=== PATIENT | male | born 1960 | race Caucasian/White ===

== ENCOUNTER 2023-11-23 09:59 | Emergency (ER) | payer BC ==
[~2023-11-23] VITALS: Ht 175.3 cm; Wt 100.2 kg
[2023-11-23 10:42] LABS: BASOPHILS % (AUTO) 0.3 % (0.0-2.0); EOSINOPHILS # (AUTO) 0.1 K/uL (0.0-0.7); EOSINOPHILS % (AUTO) 0.4 % (0.0-6.0); HEMATOCRIT 38 % (39-51); HEMOGLOBIN 13.2 g/dL (13.5-17.5); LYMPHOCYTES % (AUTO) 6.5 % (20.0-44.0); MEAN CORPUSCULAR HEMOGLOBIN 31 PG (26.0-33.0); MEAN CORPUSCULAR HGB CONC 35 g/dl (31.0-36.0); MEAN CORPUSCULAR VOLUME 88 fL (80-96); MONOCYTES % (AUTO) 6.7 % (2.0-12.0); NEUTROPHILS # (AUTO) 12.9 K/uL (1.8-8.9); NEUTROPHILS % (AUTO) 86.1 % (43.0-81.0); PLATELET COUNT (AUTO) 215 K/uL (150-450); RED BLOOD CELL COUNT(AUTO) 4.31 MIL/uL (4.5-6.0); RED CELL DISTRIBUTION WIDTH 12.5 % (11.5-15.0)
[2023-11-23 10:50] LABS: CALCIUM, SERUM 8.7 mg/dL (8.5-10.1); CARBON DIOXIDE 25 mmol/L (21-32); CHLORIDE 100 mmol/L (98-107); CREATININE 1.4 mg/dL (0.6-1.3); GLUCOSE 120 mg/dL (74-106); POTASSIUM 3.9 mmol/L (3.5-5.1); SODIUM SERUM 133 mmol/L (136-145); UREA NITROGEN, BLOOD 16 mg/dL (7-18)
[2023-11-23 10:57] LABS: ALANINE AMINOTRANSFERASE 18 U/L (12-78); ALBUMIN 3.4 g/dL (3.4-5.0); ALKALINE PHOSPHATASE 107 U/L (46-116); ASPARTATE AMINOTRANSFERASE 13 U/L (15-37); BILIRUBIN,DIRECT 0.2 mg/dL (0.0-0.2); BILIRUBIN,TOTAL 0.7 mg/dL (0.2-1.0); LIPASE 28 U/L (16-77); TOTAL PROTEIN, SERUM 7.3 g/dL (6.4-8.2)
[2023-11-23] MEDS: MORPHINE SULFATE INJ 2 MG/ML DISP.SYRIN IV ONE (11:30)
[2023-11-23] MEDS ORDERED: MORPHINE SULFATE INJ 2 MG/ML DISP.SYRIN ONE (12:01)
[2023-11-23] MEDS ORDERED: CIPR-262 PO (12:20)
[2023-11-23] MEDS: CIPROFLOXACIN HCL 500 MG TABLET PO ONE (12:38)
[2023-11-23] MEDS ORDERED: CIPROFLOXACIN HCL 500 MG TABLET ONE (12:38)
[2023-11-23 12:44] VITALS: BP 154/68; TEMP 98.2; O2SAT 97
== END 2023-11-23 12:45 | disposition home or self-care (01) ==
LOC: ER 10:16
DX: R14.0 Abdominal distension (gaseous) (principal); G43.909 Migraine, unspecified, not intractable, without status migrainosus; R06.02 Shortness of breath
CPT/HCPCS: 36415; 71045-TC; 80048-TC; 80076-TC; 83690-TC; 84484-TC; 85025-TC; 87086-TC; J2270

== ENCOUNTER 2024-04-11 20:36 | Emergency (ER) | payer BC, OTHER ==
[~2024-04-11] VITALS: Ht 175.3 cm; Wt 85.7 kg
[~2024-04-11 20:36] MED LIST: CIPR-262 PO
[2024-04-11 22:35] LABS: BASOPHILS % (AUTO) 0.2 % (0.0-2.0); EOSINOPHILS # (AUTO) 0.3 K/uL (0.0-0.7); EOSINOPHILS % (AUTO) 2.3 % (0.0-6.0); HEMATOCRIT 27 % (39-51); LYMPHOCYTES # (AUTO) 0.9 K/uL (0.8-4.8); LYMPHOCYTES % (AUTO) 7.3 % (20.0-44.0); MEAN CORPUSCULAR HEMOGLOBIN 29 PG (26.0-33.0); MEAN CORPUSCULAR HGB CONC 33 g/dl (31.0-36.0); MEAN CORPUSCULAR VOLUME 87 fL (80-96); MONOCYTES # (AUTO) 0.1 K/uL (0.1-1.30); MONOCYTES % (AUTO) 0.8 % (2.0-12.0); NEUTROPHILS # (AUTO) 10.5 K/uL (1.8-8.9); NEUTROPHILS % (AUTO) 89.4 % (43.0-81.0); PLATELET COUNT (AUTO) 183 K/uL (150-450); RED BLOOD CELL COUNT(AUTO) 3.13 MIL/uL (4.5-6.0); WHITE BLOOD COUNT (AUTO) 11.8 K/uL (4.3-11.0)
[2024-04-11 23:15] LABS: CALCIUM, SERUM 6.7 mg/dL (8.5-10.1); CREATININE 1.7 mg/dL (0.6-1.3); POTASSIUM 4.6 mmol/L (3.5-5.1)
[2024-04-11 23:27] LABS: ALBUMIN 2.3 g/dL (3.4-5.0); BILIRUBIN,TOTAL 0.4 mg/dL (0.2-1.0); MAGNESIUM 2.1 mg/dL (1.8-2.4); TOTAL PROTEIN, SERUM 6.1 g/dL (6.4-8.2)
[2024-04-11 23:53] LABS: APPEARANCE,URINE CLEAR (CLEAR); BILIRUBIN,URINE NEGATIVE (NEGATIVE); BLOOD, URINE TRACE-INTA Ery/uL (NEGATIVE); COLOR,URINE YELLOW (YELLOW); KETONES,URINE NEGATIVE (NEGATIVE); LEUKOCYTE ESTERASE ,URINE NEGATIVE (NEGATIVE); NITRITE, URINE NEGATIVE (NEGATIVE); PROTEIN,URINE NEGATIVE (NEGATIVE); UGLUCOSE NEGATIVE (NEGATIVE); UROBILINOGEN,URINE 0.2 EU/dL (0.2)
[2024-04-12 00:23] LABS: ADD URINE CULTURE NO; BACTERIA,URINE None seen /HPF (None Seen); SQUAMOUS EPITHELIAL CELL,UR None Seen /HPF (None Seen)
[2024-04-12] MEDS ORDERED: ACETAMINOPHEN 325 MG TABLET ONE (02:24)
[2024-04-12] MEDS ORDERED: ONDANSETRON 4 MG TAB.RAPDIS ONE (02:25)
[2024-04-12] MEDS: ACETAMINOPHEN 325 MG TABLET PO ONE (02:26)
[2024-04-12] MEDS: ONDANSETRON HCL/PF - ER 4 MG/2 ML VIAL IV ONE ×2 (02:26→05:30)
[2024-04-12] MEDS: LACTULOSE 10 G/15 ML UDC (PYXIS) PO STA (04:58)
[2024-04-12] MEDS ORDERED: LACTULOSE 10 G/15 ML UDC (PYXIS) ONE (05:01)
[2024-04-12] MEDS: MAGNESIUM CITRATE 296 ML BOTTLE PO ONE (05:07)
[2024-04-12] MEDS ORDERED: ONDANSETRON HCL/PF 4 MG/2 ML VIAL ONE (05:27)
[2024-04-12] MEDS ORDERED: MORPHINE SULFATE INJ 2 MG/ML DISP.SYRIN ONE (05:28)
[2024-04-12] MEDS: MORPHINE SULFATE INJ 2 MG/ML DISP.SYRIN IV ONE (05:30)
[2024-04-12 08:23] VITALS: BP 130/71; TEMP 97.8; O2SAT 98
== END 2024-04-12 08:24 | disposition home or self-care (01) ==
LOC: ER 21:55
DX: G62.9 Polyneuropathy, unspecified (principal); H93.12 Tinnitus, left ear; Z85.528 Personal history of other malignant neoplasm of kidney; Z87.440 Personal history of urinary (tract) infections; G43.909 Migraine, unspecified, not intractable, without status migrainosus; Z79.899 Other long term (current) drug therapy
CPT/HCPCS: 99285; 71250; 71045; 93005; 74176; 85025; 83735; 81001; 36415; 80053; 84484; 83880; 96374; 96375; 96376; J2405 ×3; Q0162; J2270

== ENCOUNTER 2024-08-29 18:34 | Inpatient (IN) | payer OTHER ==
[~2024-08-29] VITALS: Ht 175.3 cm; Wt 96.6 kg
[2024-08-29] MEDS ORDERED: ONDANSETRON HCL/PF 4 MG/2 ML VIAL ONE (18:48)
[2024-08-29] MEDS: ONDANSETRON HCL/PF 4 MG/2 ML VIAL IVP ONE (18:53)
[2024-08-29] MEDS: IV NS 0.9% 1,000 ML BAG IV ONE ×2 (18:53→22:44)
[2024-08-29] MEDS: MORPHINE SULFATE INJ 2 MG/ML DISP.SYRIN IV ONE (20:00)
[2024-08-29 20:45] LABS: APPEARANCE,URINE CLEAR (CLEAR); BILIRUBIN,URINE Negative (NEGATIVE); BLOOD, URINE Large Ery/uL (NEGATIVE); COLOR,URINE YELLOW (YELLOW); KETONES,URINE Negative (NEGATIVE); LEUKOCYTE ESTERASE ,URINE Negative (NEGATIVE); PH,URINE 5.5 (5.0-8.0); PROTEIN,URINE 100 mg/dl (NEGATIVE); UGLUCOSE Negative (NEGATIVE); UROBILINOGEN,URINE 0.2 EU/dL (0.2)
[2024-08-29 20:48] LABS: NITRITE, URINE NEGATIVE (NEGATIVE)
[2024-08-29] MEDS ORDERED: MORPHINE SULFATE INJ 4 MG/ML DISP.SYRIN ONE (20:49)
[2024-08-29 20:50] LABS: ADD URINE CULTURE NO; BACTERIA,URINE Few /HPF (None Seen); HYALINE CASTS, URINE Few /LPF (None Seen); SQUAMOUS EPITHELIAL CELL,UR Rare /HPF (None Seen)
[2024-08-29] MEDS ORDERED: MORPHINE SULFATE INJ 2 MG/ML DISP.SYRIN ONE (20:52)
[2024-08-29] MEDS ORDERED: ACETAMINOPHEN ES 500 MG TABLET ONE (21:05)
[2024-08-29] MEDS: ACETAMINOPHEN ES 500 MG TABLET PO ONE (21:08)
[2024-08-29 21:14] LABS: BASOPHILS # (AUTO) 0.1 K/uL (0.0-0.2); BASOPHILS % (AUTO) 0.3 % (0.0-2.0); EOSINOPHILS # (AUTO) 0.1 K/uL (0.0-0.7); EOSINOPHILS % (AUTO) 0.3 % (0.0-6.0); HEMATOCRIT 24 % (39-51); HEMOGLOBIN 7.5 g/dL (13.5-17.5); LYMPHOCYTES # (AUTO) 1.2 K/uL (0.8-4.8); LYMPHOCYTES % (AUTO) 4.4 % (20.0-44.0); MEAN CORPUSCULAR HEMOGLOBIN 30 PG (26.0-33.0); MEAN CORPUSCULAR HGB CONC 31 g/dl (31.0-36.0); MEAN CORPUSCULAR VOLUME 97 fL (80-96); MONOCYTES # (AUTO) 1.4 K/uL (0.1-1.30); MONOCYTES % (AUTO) 4.9 % (2.0-12.0); NEUTROPHILS # (AUTO) 25.4 K/uL (1.8-8.9); NEUTROPHILS % (AUTO) 90.1 % (43.0-81.0); PLATELET COUNT (AUTO) 167 K/uL (150-450); RED BLOOD CELL COUNT(AUTO) 2.47 MIL/uL (4.5-6.0); WHITE BLOOD COUNT (AUTO) 28.2 K/uL (4.3-11.0)
[2024-08-29 21:26] LABS: CALCIUM, SERUM 9.7 mg/dL (8.5-10.1); CARBON DIOXIDE 20 mmol/L (21-32); CHLORIDE 104 mmol/L (98-107); CREATININE 1.6 mg/dL (0.6-1.3); GLUCOSE 112 mg/dL (74-106); POTASSIUM 5.9 mmol/L (3.5-5.1); SODIUM SERUM 131 mmol/L (136-145); UREA NITROGEN, BLOOD 35 mg/dL (7-18)
[2024-08-29 21:30] LABS: INR 1.27 (0.91-1.10); PARTIAL THROMBOPLASTIN TIME 27.2 SEC (24.3-34.3)
[2024-08-29 21:31] LABS: ALANINE AMINOTRANSFERASE 56 U/L (12-78); ALBUMIN 1.9 g/dL (3.4-5.0); ASPARTATE AMINOTRANSFERASE 60 U/L (15-37); BILIRUBIN,DIRECT 0.5 mg/dL (0.0-0.2); BILIRUBIN,TOTAL 0.7 mg/dL (0.2-1.0); LIPASE 20 U/L (16-77); TOTAL PROTEIN, SERUM 6.1 g/dL (6.4-8.2)
[2024-08-29 21:33] LABS: LACTIC ACID 2.2 mmol/L (0.4-2.0)
[2024-08-29 21:48] LABS: ALKALINE PHOSPHATASE 1560 U/L (46-116)
[2024-08-29 21:55] LABS: ANISOCYTOSIS 1+; LYMPHOCYTES % (MANUAL) 8 % (16-48); MONOCYTES % (MANUAL) 1 % (0-11.0); NEUTROPHILS % (MANUAL) 91 (42-76); PLATELET ESTIMATE ADEQUATE
[2024-08-29] MEDS ORDERED: VANCOMYCIN 1 GM /D5W 250 ML PB IV ONE (22:29)
[2024-08-29] MEDS ORDERED: MAGNESIUM HYDROXIDE 30 ML UDC PO PRN (22:30)
[2024-08-29] MEDS ORDERED: Z GUARD REMEDY 4 OZ OINT TP PRN (22:30)
[2024-08-29] MEDS: VANCOMYCIN 1 GM in IV D5W 250 ML IV ONE (22:52)
[2024-08-29] MEDS ORDERED: SODIUM ZIRCONIUM CYCLOSILICATE 10 GM POWD.PACK ONE (22:59)
[2024-08-29] MEDS: SODIUM ZIRCONIUM CYCLOSILICATE 10 GM POWD.PACK PO ONE (23:03)
[2024-08-29 23:22] LABS: CREATININE 1.5 mg/dL (0.6-1.3); POTASSIUM 5.8 mmol/L (3.5-5.1)
[2024-08-29 23:31] LABS: LACTIC ACID 1.7 mmol/L (0.4-2.0)
[2024-08-30] MEDS ORDERED: PIPERACI/TAZO 3.375GM/D5W 50ML PB IV ONE (00:38)
[2024-08-30] MEDS: PIPERACILLIN /TAZOBACTAM 3.375 G in IV D5W 50 ML IV ONE (00:40)
[2024-08-30] MEDS ORDERED: PANTOPRAZOLE 40 MG TABLET.DR PO ONE (07:44)
[2024-08-30] MEDS ORDERED: ACETAMINOPHEN 325 MG TABLET ONE (07:44)
[2024-08-30] MEDS: ACETAMINOPHEN 325 MG TABLET PO PRN (07:47)
[2024-08-30] MEDS: PANTOPRAZOLE 40 MG TABLET.DR PO SCH (07:47)
[2024-08-30 07:54] LABS: BASOPHILS # (AUTO) 0.1 K/uL (0.0-0.2); BASOPHILS % (AUTO) 0.4 % (0.0-2.0); EOSINOPHILS # (AUTO) 0.1 K/uL (0.0-0.7); EOSINOPHILS % (AUTO) 0.5 % (0.0-6.0); HEMATOCRIT 22 % (39-51); LYMPHOCYTES # (AUTO) 1.1 K/uL (0.8-4.8); LYMPHOCYTES % (AUTO) 4.2 % (20.0-44.0); MEAN CORPUSCULAR HEMOGLOBIN 30 PG (26.0-33.0); MEAN CORPUSCULAR HGB CONC 32 g/dl (31.0-36.0); MEAN CORPUSCULAR VOLUME 96 fL (80-96); MONOCYTES # (AUTO) 1.3 K/uL (0.1-1.30); MONOCYTES % (AUTO) 4.9 % (2.0-12.0); NEUTROPHILS # (AUTO) 24.5 K/uL (1.8-8.9); PLATELET COUNT (AUTO) 148 K/uL (150-450); RED BLOOD CELL COUNT(AUTO) 2.31 MIL/uL (4.5-6.0); RED CELL DISTRIBUTION WIDTH 17.2 % (11.5-15.0); WHITE BLOOD COUNT (AUTO) 27.2 K/uL (4.3-11.0)
[2024-08-30] MEDS: VANCOMYCIN 750 MG in IV D5W 250 ML IV SCH (08:00)
[2024-08-30 08:04] LABS: CALCIUM, SERUM 8.6 mg/dL (8.5-10.1); CREATININE 1.2 mg/dL (0.6-1.3); MAGNESIUM 1.8 mg/dL (1.8-2.4); POTASSIUM 4.6 mmol/L (3.5-5.1)
[2024-08-30] MEDS ORDERED: APIX5TAB PO (09:00)
[2024-08-30] MEDS ORDERED: TRAM50TA2 PO (09:00)
[2024-08-30] MEDS ORDERED: PANT40TA49 PO (09:00)
[2024-08-30] MEDS: PIPERACILLIN /TAZOBACTAM 3.375 G in IV D5W 100 ML IV SCH (09:11)
[2024-08-30] MEDS: IV NS 0.9% 1,000 ML IV PRN (09:43)
[2024-08-30 10:51] LABS: EOSINOPHILS % (MANUAL) 1 % (0-4); LYMPHOCYTES % (MANUAL) 4 % (16-48); MONOCYTES % (MANUAL) 1 % (0-11.0); NEUTROPHILS % (MANUAL) 94 (42-76); PLATELET ESTIMATE DECREASED
[2024-08-30 10:53] LABS: ANISOCYTOSIS 1+
[2024-08-30 12:00] VITALS: BP 112/63; TEMP 97.9; O2SAT 100
[2024-08-30 16:00] VITALS: BP 116/65; TEMP 99.1; O2SAT 93
[2024-08-30] MEDS: IV LR 1000 ML 1,000 ML IV SCH (16:04)
[2024-08-30 20:00] VITALS: BP 119/63; TEMP 100.4; O2SAT 95
[2024-08-30] MEDS: VANCOMYCIN 1 GM in IV D5W 250 ML IV SCH (21:10)
[2024-08-31] VITALS: BP 113/66; TEMP 101.7; O2SAT 99
[2024-08-31] MEDS: TRAMADOL HCL 50 MG TABLET PO ONE (00:35)
[2024-08-31 07:09] LABS: BASOPHILS # (AUTO) 0.2 K/uL (0.0-0.2); BASOPHILS % (AUTO) 0.6 % (0.0-2.0); EOSINOPHILS # (AUTO) 0.1 K/uL (0.0-0.7); EOSINOPHILS % (AUTO) 0.6 % (0.0-6.0); HEMATOCRIT 24 % (39-51); HEMOGLOBIN 7.6 g/dL (13.5-17.5); LYMPHOCYTES # (AUTO) 1.1 K/uL (0.8-4.8); LYMPHOCYTES % (AUTO) 4.3 % (20.0-44.0); MEAN CORPUSCULAR HEMOGLOBIN 31 PG (26.0-33.0); MEAN CORPUSCULAR HGB CONC 32 g/dl (31.0-36.0); MEAN CORPUSCULAR VOLUME 97 fL (80-96); MONOCYTES # (AUTO) 1.3 K/uL (0.1-1.30); MONOCYTES % (AUTO) 4.8 % (2.0-12.0); NEUTROPHILS # (AUTO) 23.4 K/uL (1.8-8.9); NEUTROPHILS % (AUTO) 89.7 % (43.0-81.0); PLATELET COUNT (AUTO) 144 K/uL (150-450); WHITE BLOOD COUNT (AUTO) 26.1 K/uL (4.3-11.0)
[2024-08-31 07:43] LABS: CALCIUM, SERUM 10.3 mg/dL (8.5-10.1); CREATININE 1.6 mg/dL (0.6-1.3); POTASSIUM 5.1 mmol/L (3.5-5.1)
[2024-08-31 08:00] VITALS: BP 113/61; TEMP 97.9; O2SAT 99
[2024-08-31] MEDS: IV LR 1000 ML 1,000 ML IV PRN (09:07)
[2024-08-31 09:46] LABS: EOSINOPHILS % (MANUAL) 1 % (0-4); LYMPHOCYTES % (MANUAL) 5 % (16-48); MONOCYTES % (MANUAL) 4 % (0-11.0); NEUTROPHILS % (MANUAL) 90 (42-76)
[2024-08-31] MEDS: APIXABAN 5 MG TABLET PO SCH (10:17)
[2024-08-31 12:00] VITALS: BP 105/63; TEMP 98.1; O2SAT 97
[2024-08-31] MEDS: PAMIDRONATE 30 MG in IV NS 0.9% 500 ML IV ONE (12:45)
[2024-08-31 16:00] VITALS: BP 104/68; TEMP 98.1; O2SAT 100
[2024-08-31 18:09] LABS: D-DIMER 4.16 mg/L(FEU (0.17-0.50); INR 1.27 (0.91-1.10); PARTIAL THROMBOPLASTIN TIME 30.5 SEC (24.3-34.3); PROTHROMBIN TIME 13.3 SECS (9.2-11.1)
[2024-08-31 18:36] LABS: THYROID STIMULATING HORMONE 0.55 uIU/mL (0.358-3.74)
[2024-08-31 20:00] VITALS: BP 92/73; TEMP 100.6; O2SAT 97
[2024-08-31] MEDS: VANCOMYCIN 750 MG in IV D5W 250 ML IV SCH (20:20)
[2024-08-31] MEDS ORDERED: MEROPENEM 1 G VIAL IV ONE (23:17)
[2024-08-31] MEDS: MEROPENEM 1 G in IV NS 0.9% 100 ML IV ONE (23:23)
[2024-08-31] MEDS: TRAMADOL HCL 50 MG TABLET PO PRN (23:48)
[2024-08-31] MEDS: SENNOSIDES 8.6 MG TABLET PO PRN (23:48)
[2024-09-01] VITALS: BP 107/62; TEMP 99.3; O2SAT 95
[2024-09-01 04:00] VITALS: BP 96/65; TEMP 97.9; O2SAT 97
[2024-09-01 06:47] LABS: INR 1.27 (0.91-1.10); PARTIAL THROMBOPLASTIN TIME 32.2 SEC (24.3-34.3); PROTHROMBIN TIME 13.3 SECS (9.2-11.1)
[2024-09-01 06:48] LABS: RHEUMATOID FACTOR SCREEN NEGATIVE (NEGATIVE)
[2024-09-01 06:50] LABS: D-DIMER 5.84 mg/L(FEU (0.17-0.50)
[2024-09-01 06:54] LABS: ALBUMIN 1.8 g/dL (3.4-5.0); BILIRUBIN,TOTAL 0.7 mg/dL (0.2-1.0); CALCIUM, SERUM 10.6 mg/dL (8.5-10.1); CREATININE 1.9 mg/dL (0.6-1.3); MAGNESIUM 2.1 mg/dL (1.8-2.4); PHOSPHORUS 3.9 mg/dL (2.5-4.9); POTASSIUM 5.2 mmol/L (3.5-5.1); TOTAL PROTEIN, SERUM 5.9 g/dL (6.4-8.2)
[2024-09-01 06:58] LABS: CREATININE, URINE 91.7 MG/DL (30.0-125.0); URINE TOTAL PROTEIN 65.9 mg/dL (0-11.9)
[2024-09-01 07:01] LABS: BASOPHILS # (AUTO) 0.1 K/uL (0.0-0.2); BASOPHILS % (AUTO) 0.4 % (0.0-2.0); EOSINOPHILS # (AUTO) 0.2 K/uL (0.0-0.7); EOSINOPHILS % (AUTO) 0.6 % (0.0-6.0); HEMATOCRIT 23 % (39-51); HEMOGLOBIN 7.1 g/dL (13.5-17.5); LYMPHOCYTES # (AUTO) 1.4 K/uL (0.8-4.8); LYMPHOCYTES % (AUTO) 4.9 % (20.0-44.0); MEAN CORPUSCULAR HEMOGLOBIN 30 PG (26.0-33.0); MEAN CORPUSCULAR HGB CONC 30 g/dl (31.0-36.0); MEAN CORPUSCULAR VOLUME 99 fL (80-96); MONOCYTES # (AUTO) 1.3 K/uL (0.1-1.30); MONOCYTES % (AUTO) 4.5 % (2.0-12.0); NEUTROPHILS # (AUTO) 26.3 K/uL (1.8-8.9); NEUTROPHILS % (AUTO) 89.6 % (43.0-81.0); PLATELET COUNT (AUTO) 146 K/uL (150-450); RED BLOOD CELL COUNT(AUTO) 2.35 MIL/uL (4.5-6.0); RED CELL DISTRIBUTION WIDTH 17.8 % (11.5-15.0); WHITE BLOOD COUNT (AUTO) 29.3 K/uL (4.3-11.0)
[2024-09-01 08:00] VITALS: BP 106/62; TEMP 98.4; O2SAT 98
[2024-09-01] MEDS ORDERED: SODIUM ZIRCONIUM CYCLOSILICATE 10 GM POWD.PACK PO SCH (09:30)
[2024-09-01] MEDS: MEROPENEM 1 G in IV NS 0.9% 100 ML IV SCH (09:46)
[2024-09-01] MEDS: IV NS 0.9% 1,000 ML IV ONE (09:51)
[2024-09-01 12:00] VITALS: BP 111/63; TEMP 97.9; O2SAT 100
[2024-09-01] MEDS: VANCOMYCIN 1 GM in IV D5W 250 ML IV SCH (13:11)
[2024-09-01] MEDS ORDERED: SOD FERRIC GLUC 125 MG in IV NS 0.9% 100 ML IV SCH (14:00)
[2024-09-01] MEDS: PAMIDRONATE 30 MG in IV NS 0.9% 500 ML IV ONE (14:17)
[2024-09-01 15:21] LABS: CALCIUM, SERUM 10.1 mg/dL (8.5-10.1); CREATININE 1.6 mg/dL (0.6-1.3)
[2024-09-01 16:00] VITALS: BP 125/64; TEMP 98; O2SAT 98
[2024-09-01 16:09] LABS: HEMOGLOBIN 7.2 g/dL (13.5-17.5)
[2024-09-01] MEDS: FERROUS SULFATE (325 MG) 325 MG/TAB TABLET PO SCH (16:53)
[2024-09-01 20:00] VITALS: BP 131/61; TEMP 98.6; O2SAT 98
[2024-09-02] VITALS (7 sets, daily range): BP systolic 108–130; BP diastolic 59–90; TEMP 97.8–99.5; O2SAT 95–96
[2024-09-02] MEDS: MAG HYDROX/AL HYDROX/SIMETH 30 ML UDC PO PRN (03:47)
[2024-09-02 07:24] LABS: URIC ACID 7.7 mg/dL (2.6-7.2)
[2024-09-02 07:39] LABS: ALBUMIN 1.6 g/dL (3.4-5.0); BILIRUBIN,TOTAL 0.7 mg/dL (0.2-1.0); CALCIUM, SERUM 9.6 mg/dL (8.5-10.1); CREATININE 1.4 mg/dL (0.6-1.3); PHOSPHORUS 2.8 mg/dL (2.5-4.9); POTASSIUM 5.2 mmol/L (3.5-5.1); TOTAL PROTEIN, SERUM 5.5 g/dL (6.4-8.2)
[2024-09-02 08:34] LABS: BASOPHILS # (AUTO) 0.1 K/uL (0.0-0.2); BASOPHILS % (AUTO) 0.4 % (0.0-2.0); EOSINOPHILS # (AUTO) 0.2 K/uL (0.0-0.7); EOSINOPHILS % (AUTO) 0.7 % (0.0-6.0); HEMATOCRIT 22 % (39-51); LYMPHOCYTES # (AUTO) 1.2 K/uL (0.8-4.8); LYMPHOCYTES % (AUTO) 3.9 % (20.0-44.0); MEAN CORPUSCULAR HEMOGLOBIN 30 PG (26.0-33.0); MEAN CORPUSCULAR HGB CONC 31 g/dl (31.0-36.0); MEAN CORPUSCULAR VOLUME 97 fL (80-96); MONOCYTES # (AUTO) 1.2 K/uL (0.1-1.30); MONOCYTES % (AUTO) 3.9 % (2.0-12.0); NEUTROPHILS % (AUTO) 91.1 % (43.0-81.0); PLATELET COUNT (AUTO) 126 K/uL (150-450); RED BLOOD CELL COUNT(AUTO) 2.26 MIL/uL (4.5-6.0); RED CELL DISTRIBUTION WIDTH 17.3 % (11.5-15.0)
[2024-09-02 08:37] LABS: HEMOGLOBIN 6.8 g/dL (13.5-17.5); WHITE BLOOD COUNT (AUTO) 30.7 K/uL (4.3-11.0)
[2024-09-02] MEDS: SODIUM ZIRCONIUM CYCLOSILICATE 10 GM POWD.PACK PO SCH (09:31)
[2024-09-02 12:26] LABS: EOSINOPHILS % (MANUAL) 2 % (0-4); LYMPHOCYTES % (MANUAL) 6 % (16-48); MONOCYTES % (MANUAL) 1 % (0-11.0); NEUTROPHILS % (MANUAL) 91 (42-76); PLATELET ESTIMATE DECREASED
[2024-09-02 12:27] LABS: ANISOCYTOSIS 1+
[2024-09-02] MEDS: GUAIFENESIN/D-METHORPHAN HB 5 ML UDC PO PRN (14:59)
[2024-09-02] MEDS: PAMIDRONATE 30 MG in IV NS 0.9% 500 ML IV ONE (15:40)
[2024-09-02] MEDS: VANCOMYCIN 1 GM in IV D5W 250 ML IV SCH (17:56)
[2024-09-03] VITALS: BP 130/67; TEMP 100; O2SAT 96
[2024-09-03 06:52] LABS: BASOPHILS # (AUTO) 0.1 K/uL (0.0-0.2); BASOPHILS % (AUTO) 0.3 % (0.0-2.0); EOSINOPHILS # (AUTO) 0.3 K/uL (0.0-0.7); EOSINOPHILS % (AUTO) 0.9 % (0.0-6.0); HEMATOCRIT 25 % (39-51); HEMOGLOBIN 8.2 g/dL (13.5-17.5); LYMPHOCYTES # (AUTO) 1.2 K/uL (0.8-4.8); MEAN CORPUSCULAR HEMOGLOBIN 31 PG (26.0-33.0); MEAN CORPUSCULAR HGB CONC 32 g/dl (31.0-36.0); MEAN CORPUSCULAR VOLUME 95 fL (80-96); MONOCYTES # (AUTO) 1.3 K/uL (0.1-1.30); MONOCYTES % (AUTO) 4.6 % (2.0-12.0); NEUTROPHILS % (AUTO) 90.2 % (43.0-81.0); PLATELET COUNT (AUTO) 102 K/uL (150-450); RED BLOOD CELL COUNT(AUTO) 2.66 MIL/uL (4.5-6.0); RED CELL DISTRIBUTION WIDTH 17.2 % (11.5-15.0); WHITE BLOOD COUNT (AUTO) 28.9 K/uL (4.3-11.0)
[2024-09-03 06:57] LABS: CALCIUM, SERUM 9.7 mg/dL (8.5-10.1); CREATININE 1.3 mg/dL (0.6-1.3)
[2024-09-03 08:00] VITALS: BP 100/68; TEMP 98.8; O2SAT 96
[2024-09-03 08:10] LABS: IMMUNOGLOBULIN A, SERUM 282 mg/dL (61-437); IMMUNOGLOBULIN G, SERUM 1021 mg/dL (603-1613); IMMUNOGLOBULIN M, SERUM 116 mg/dL (20-172)
[2024-09-03 09:07] LABS: FREE KAPPA LT CHAINS SERUM 64.1 mg/L (3.3-19.4); FREE LAMBDA LT CHAIN SERUM 56.5 mg/L (5.7-26.3); KAPPA/LAMBDA RATIO SERUM 1.13 (0.26-1.65)
[2024-09-03] MEDS: ENSURE ENLIVE CHOC 237 ML CAN PO SCH (10:19)
[2024-09-03 16:00] VITALS: BP_SYST 115; BP_SYST 118; BP_DIAS 65; BP_DIAS 67; TEMP 97.9; O2SAT 95; O2SAT 96
[2024-09-03 19:07] LABS: APPEARANCE,URINE TURBID (CLEAR); BILIRUBIN,URINE NEGATIVE (NEGATIVE); BLOOD, URINE NEGATIVE Ery/uL (NEGATIVE); COLOR,URINE ORANGE (YELLOW); KETONES,URINE NEGATIVE (NEGATIVE); LEUKOCYTE ESTERASE ,URINE NEGATIVE (NEGATIVE); NITRITE, URINE NEGATIVE (NEGATIVE); PH,URINE 5.5 (5.0-8.0); PROTEIN,URINE TRACE mg/dl (NEGATIVE); UGLUCOSE NEGATIVE (NEGATIVE); UROBILINOGEN,URINE 0.2 EU/dL (0.2)
[2024-09-03 19:43] LABS: ADD URINE CULTURE NO; BACTERIA,URINE Rare /HPF (None Seen); RBC,URINE 0-2 /HPF (0-2); SQUAMOUS EPITHELIAL CELL,UR 0-2 /HPF (None Seen); WBC,URINE 0-2 /HPF (0-3)
[2024-09-03 19:44] LABS: URINE AMORPHOUS URATE Many /HPF (None Seen)
[2024-09-04 04:00] VITALS: BP 106/63; TEMP 99.5; O2SAT 96
[2024-09-04 07:07] LABS: CALCIUM, SERUM 9.7 mg/dL (8.5-10.1); CREATININE 1.4 mg/dL (0.6-1.3); MAGNESIUM 2.3 mg/dL (1.8-2.4); PHOSPHORUS 2.8 mg/dL (2.5-4.9); POTASSIUM 5.6 mmol/L (3.5-5.1)
[2024-09-04 07:10] LABS: *ANA ANTI-CENTROMERE B AB <0.2 AI (0.0-0.9); *ANA ANTI-DNA(DS) AB, QN <1 IU/mL (0-9); *ANA ANTI-JO-1 <0.2 AI (0.0-0.9); *ANA ANTICHROMATIN ANTIBODY <0.2 AI (0.0-0.9); *ANA RNP ANTIBODIES <0.2 AI (0.0-0.9); *ANA SJOGREN'S ANTI-SS-A <0.2 AI (0.0-0.9); *ANA SJOGREN'S ANTI-SS-B <0.2 AI (0.0-0.9); *ANAANTI-SCLERODERMA-70 AB <0.2 AI (0.0-0.9); *ANASMITH AB <0.2 AI (0.0-0.9)
[2024-09-04 08:43] LABS: BASOPHILS # (AUTO) 0.1 K/uL (0.0-0.2); BASOPHILS % (AUTO) 0.3 % (0.0-2.0); EOSINOPHILS # (AUTO) 0.2 K/uL (0.0-0.7); EOSINOPHILS % (AUTO) 0.7 % (0.0-6.0); HEMATOCRIT 27 % (39-51); HEMOGLOBIN 8.3 g/dL (13.5-17.5); LYMPHOCYTES # (AUTO) 1.3 K/uL (0.8-4.8); LYMPHOCYTES % (AUTO) 3.8 % (20.0-44.0); MEAN CORPUSCULAR HEMOGLOBIN 30 PG (26.0-33.0); MEAN CORPUSCULAR HGB CONC 31 g/dl (31.0-36.0); MEAN CORPUSCULAR VOLUME 98 fL (80-96); MONOCYTES # (AUTO) 1.4 K/uL (0.1-1.30); MONOCYTES % (AUTO) 4.3 % (2.0-12.0); NEUTROPHILS # (AUTO) 30.1 K/uL (1.8-8.9); NEUTROPHILS % (AUTO) 90.9 % (43.0-81.0); PLATELET COUNT (AUTO) 74 K/uL (150-450); RED BLOOD CELL COUNT(AUTO) 2.74 MIL/uL (4.5-6.0); RED CELL DISTRIBUTION WIDTH 18.1 % (11.5-15.0)
[2024-09-04 09:22] LABS: WHITE BLOOD COUNT (AUTO) 33.1 K/uL (4.3-11.0)
[2024-09-04] MEDS: NEOMY SULF/BACITRAC ZN/POLY 15 GM TUBE TP SCH (10:17)
[2024-09-04 12:05] VITALS: BP 100/68; TEMP 98.8; O2SAT 96
[2024-09-04 12:06] LABS: *SPE A/G RATIO 0.6 (0.7-1.7); *SPE ALBUMIN 1.9 g/dL (2.9-4.4); *SPE ALPHA-1-GLOBULIN 0.6 g/dL (0.0-0.4); *SPE ALPHA-2-GLOBULIN 0.9 g/dL (0.4-1.0); *SPE BETA GLOBULIN 0.6 g/dL (0.7-1.3); *SPE GLOBULIN, TOTAL 3.2 g/dL (2.2-3.9); *SPE M-SPIKE 0.2 g/dL (Not Observed); *SPE PROTEIN TOTAL 5.1 g/dL (6.0-8.5)
[2024-09-04 12:06] LABS: *SPE A/G RATIO 0.6 (0.7-1.7); *SPE ALBUMIN 1.8 g/dL (2.9-4.4); *SPE ALPHA-1-GLOBULIN 0.6 g/dL (0.0-0.4); *SPE ALPHA-2-GLOBULIN 0.9 g/dL (0.4-1.0); *SPE BETA GLOBULIN 0.7 g/dL (0.7-1.3); *SPE GLOBULIN, TOTAL 3.1 g/dL (2.2-3.9); *SPE M-SPIKE Not Observed g/dL (Not Observed); *SPE PROTEIN TOTAL 4.9 g/dL (6.0-8.5); *SPEGAMMA GLOBULIN 0.9 g/dL (0.4-1.8)
[2024-09-04 12:46] LABS: INR 1.39 (0.91-1.10); PROTHROMBIN TIME 14.1 SECS (9.2-11.1)
[2024-09-04 13:45] LABS: LYMPHOCYTES % (MANUAL) 6 % (16-48); MONOCYTES % (MANUAL) 2 % (0-11.0); NEUTROPHILS % (MANUAL) 92 (42-76); PLATELET ESTIMATE DECREASED
[2024-09-04 13:46] LABS: ANISOCYTOSIS 1+
[2024-09-04 13:53] LABS: D-DIMER 10.23 mg/L(FEU (0.17-0.50)
[2024-09-04] MEDS: ALLOPURINOL 100 MG TABLET PO SCH (14:52)
[2024-09-04] MEDS: SOD FERRIC GLUC 125 MG in IV NS 0.9% 100 ML IV SCH (16:18)
[2024-09-04 20:00] VITALS: BP 103/63; TEMP 100.6; O2SAT 96
[2024-09-05 01:06] LABS: FOLIC ACID 2.6 ng/mL (>3.0)
[2024-09-05 02:09] LABS: HEPATITIS B SURFACE AB (QUAL) Non Reactive (.)
[2024-09-05 04:00] VITALS: BP 108/65; TEMP 99.5; O2SAT 95
[2024-09-05 06:11] LABS: PTH, INTACT 4 pg/mL (15-65)
[2024-09-05 07:19] LABS: INR 1.39 (0.91-1.10); PARTIAL THROMBOPLASTIN TIME 39.4 SEC (24.3-34.3); PROTHROMBIN TIME 14.4 SECS (9.2-11.1)
[2024-09-05 07:48] LABS: ALBUMIN 1.5 g/dL (3.4-5.0); BILIRUBIN,TOTAL 1.1 mg/dL (0.2-1.0); CALCIUM, SERUM 8.9 mg/dL (8.5-10.1); CREATININE 1.5 mg/dL (0.6-1.3); MAGNESIUM 2.2 mg/dL (1.8-2.4); PHOSPHORUS 2.9 mg/dL (2.5-4.9); POTASSIUM 5.5 mmol/L (3.5-5.1); TOTAL PROTEIN, SERUM 5.2 g/dL (6.4-8.2)
[2024-09-05 07:51] LABS: URIC ACID 9.3 mg/dL (2.6-7.2)
[2024-09-05 08:00] VITALS: BP 105/59; TEMP 98.1; O2SAT 93
[2024-09-05 08:05] LABS: D-DIMER 10.65 mg/L(FEU (0.17-0.50)
[2024-09-05] MEDS ORDERED: NEPRO VAN 237 ML CAN PO PRN ×2 (08:30→14:00)
[2024-09-05 08:39] LABS: BASOPHILS # (AUTO) 0.1 K/uL (0.0-0.2); BASOPHILS % (AUTO) 0.4 % (0.0-2.0); EOSINOPHILS # (AUTO) 0.3 K/uL (0.0-0.7); EOSINOPHILS % (AUTO) 0.9 % (0.0-6.0); HEMATOCRIT 22 % (39-51); LYMPHOCYTES # (AUTO) 1.1 K/uL (0.8-4.8); LYMPHOCYTES % (AUTO) 3.4 % (20.0-44.0); MEAN CORPUSCULAR HEMOGLOBIN 30 PG (26.0-33.0); MEAN CORPUSCULAR HGB CONC 31 g/dl (31.0-36.0); MEAN CORPUSCULAR VOLUME 96 fL (80-96); MONOCYTES # (AUTO) 1.4 K/uL (0.1-1.30); MONOCYTES % (AUTO) 4.4 % (2.0-12.0); NEUTROPHILS # (AUTO) 28.1 K/uL (1.8-8.9); NEUTROPHILS % (AUTO) 90.9 % (43.0-81.0); RED BLOOD CELL COUNT(AUTO) 2.33 MIL/uL (4.5-6.0); RED CELL DISTRIBUTION WIDTH 17.7 % (11.5-15.0)
[2024-09-05 08:54] LABS: PLATELET COUNT (AUTO) 41 K/uL (150-450)
[2024-09-05] MEDS: SODIUM ZIRCONIUM CYCLOSILICATE 10 GM POWD.PACK PO SCH (10:13)
[2024-09-05] MEDS: IV NS 0.9% 1,000 ML IV SCH (10:14)
[2024-09-05 10:37] LABS: ANISOCYTOSIS 1+; LYMPHOCYTES % (MANUAL) 3 % (16-48); NEUTROPHILS % (MANUAL) 97 (42-76); PLATELET ESTIMATE DECREASED
[2024-09-05 12:00] VITALS: BP 105/59; TEMP 98.1; O2SAT 93
[2024-09-05] MEDS: SUCRALFATE 1 G/10 ML UDC GT SCH (12:23)
[2024-09-05] MEDS: HYDROCODONE/APAP 5/325MG TABLET PO PRN (13:45)
[2024-09-05 15:31] LABS: BASOPHILS # (AUTO) 0.1 K/uL (0.0-0.2); BASOPHILS % (AUTO) 0.2 % (0.0-2.0); EOSINOPHILS # (AUTO) 0.3 K/uL (0.0-0.7); EOSINOPHILS % (AUTO) 0.8 % (0.0-6.0); HEMATOCRIT 23 % (39-51); HEMOGLOBIN 7.5 g/dL (13.5-17.5); LYMPHOCYTES # (AUTO) 1.2 K/uL (0.8-4.8); LYMPHOCYTES % (AUTO) 3.5 % (20.0-44.0); MEAN CORPUSCULAR HEMOGLOBIN 31 PG (26.0-33.0); MEAN CORPUSCULAR HGB CONC 32 g/dl (31.0-36.0); MEAN CORPUSCULAR VOLUME 96 fL (80-96); MONOCYTES # (AUTO) 1.4 K/uL (0.1-1.30); MONOCYTES % (AUTO) 3.9 % (2.0-12.0); NEUTROPHILS # (AUTO) 32.3 K/uL (1.8-8.9); NEUTROPHILS % (AUTO) 91.6 % (43.0-81.0); RED BLOOD CELL COUNT(AUTO) 2.45 MIL/uL (4.5-6.0); RED CELL DISTRIBUTION WIDTH 17.4 % (11.5-15.0)
[2024-09-05 15:35] LABS: PLATELET COUNT (AUTO) 31 K/uL (150-450); WHITE BLOOD COUNT (AUTO) 35.3 K/uL (4.3-11.0)
[2024-09-05 15:43] LABS: AMYLASE 19 U/L (25-115); LIPASE 19 U/L (16-77)
[2024-09-05 15:59] LABS: LYMPHOCYTES % (MANUAL) 4 % (16-48); MONOCYTES % (MANUAL) 4 % (0-11.0); NEUTROPHILS % (MANUAL) 92 (42-76)
[2024-09-05 16:00] VITALS: BP 103/63; TEMP 98.8; O2SAT 94
[2024-09-05 16:00] LABS: ANISOCYTOSIS 1+; PLATELET ESTIMATE DECREASED; STOMATOCYTES 1+
[2024-09-05] MEDS: methylPREDNISolone SOD SUCC 125 MG/2ML VIAL IV SCH (16:37)
[2024-09-05] MEDS ORDERED: RASBURICASE IV ONE (18:00)
[2024-09-05] MEDS ORDERED: NS 0.9% IV ONE (18:00)
[2024-09-05 20:00] VITALS: BP 113/65; TEMP 97; O2SAT 95
[2024-09-05] MEDS: RASBURICASE IV ONE (20:37)
[2024-09-05] MEDS: NS 0.9% IV ONE (20:37)
[2024-09-05] MEDS: LEVOFLOXACIN (250MG) 250 MG TABLET PO SCH (21:40)
[2024-09-05] MEDS: DOXYCYCLINE HYCLATE (100 MG) 100 MG TABLET PO SCH (21:47)
[2024-09-06 04:00] VITALS: BP 112/67; TEMP 97.9; O2SAT 96
[2024-09-06 06:54] LABS: BASOPHILS # (AUTO) 0.1 K/uL (0.0-0.2); BASOPHILS % (AUTO) 0.3 % (0.0-2.0); EOSINOPHILS # (AUTO) 0.5 K/uL (0.0-0.7); HEMATOCRIT 26 % (39-51); HEMOGLOBIN 8.1 g/dL (13.5-17.5); LYMPHOCYTES # (AUTO) 1.3 K/uL (0.8-4.8); LYMPHOCYTES % (AUTO) 2.8 % (20.0-44.0); MEAN CORPUSCULAR HEMOGLOBIN 30 PG (26.0-33.0); MEAN CORPUSCULAR HGB CONC 31 g/dl (31.0-36.0); MEAN CORPUSCULAR VOLUME 96 fL (80-96); MONOCYTES # (AUTO) 0.6 K/uL (0.1-1.30); MONOCYTES % (AUTO) 1.4 % (2.0-12.0); NEUTROPHILS # (AUTO) 44.2 K/uL (1.8-8.9); NEUTROPHILS % (AUTO) 94.5 % (43.0-81.0); RED BLOOD CELL COUNT(AUTO) 2.69 MIL/uL (4.5-6.0); RED CELL DISTRIBUTION WIDTH 18.2 % (11.5-15.0)
[2024-09-06 07:23] LABS: URIC ACID 6.9 mg/dL (2.6-7.2)
[2024-09-06 07:34] LABS: PLATELET COUNT (AUTO) 20 K/uL (150-450); WHITE BLOOD COUNT (AUTO) 46.7 K/uL (4.3-11.0)
[2024-09-06 07:41] LABS: BILIRUBIN,TOTAL 0.8 mg/dL (0.2-1.0); CALCIUM, SERUM 8.5 mg/dL (8.5-10.1); CREATININE 1.4 mg/dL (0.6-1.3); MAGNESIUM 2.2 mg/dL (1.8-2.4); PHOSPHORUS 3.3 mg/dL (2.5-4.9); POTASSIUM 5.5 mmol/L (3.5-5.1); TOTAL PROTEIN, SERUM 5.2 g/dL (6.4-8.2)
[2024-09-06 08:23] LABS: ALBUMIN 1.4 g/dL (3.4-5.0)
[2024-09-06] MEDS: FOLIC ACID 1 MG TABLET PO SCH (09:42)
[2024-09-06 10:20] LABS: ANISOCYTOSIS 1+; EOSINOPHILS % (MANUAL) 1 % (0-4); LYMPHOCYTES % (MANUAL) 4 % (16-48); NEUTROPHILS % (MANUAL) 95 (42-76); PLATELET ESTIMATE DECREASED
[2024-09-06] MEDS: IV NS 0.9% 1,000 ML IV SCH (10:42)
[2024-09-06] MEDS: SODIUM ZIRCONIUM CYCLOSILICATE 10 GM POWD.PACK PO SCH (11:00)
[2024-09-06 12:00] VITALS: BP 120/70; TEMP 98; O2SAT 96
[2024-09-06] MEDS: ONDANSETRON HCL/PF 4 MG/2 ML VIAL IVP PRN (16:19)
[2024-09-06 16:58] LABS: CALCIUM, SERUM 8.6 mg/dL (8.5-10.1); CREATININE 1.5 mg/dL (0.6-1.3); POTASSIUM 5.4 mmol/L (3.5-5.1)
[2024-09-06 20:00] VITALS: BP 108/98; TEMP 97.2; O2SAT 97
[2024-09-06] MEDS: POLYETHYLENE GLYCOL 3350 17 GM POWD.PACK PO SCH (21:29)
[2024-09-07 04:00] VITALS: BP_SYST 119; BP_SYST 135; BP_DIAS 70; TEMP 97.4; O2SAT 96
[2024-09-07 07:08] LABS: INR 1.34 (0.91-1.10); PARTIAL THROMBOPLASTIN TIME 30.3 SEC (24.3-34.3); PROTHROMBIN TIME 13.9 SECS (9.2-11.1)
[2024-09-07 07:11] LABS: D-DIMER 7.61 mg/L(FEU (0.17-0.50)
[2024-09-07 07:57] LABS: BILIRUBIN,TOTAL 0.9 mg/dL (0.2-1.0); CALCIUM, SERUM 8.2 mg/dL (8.5-10.1); CREATININE 1.6 mg/dL (0.6-1.3); MAGNESIUM 2.4 mg/dL (1.8-2.4); PHOSPHORUS 3.2 mg/dL (2.5-4.9); POTASSIUM 5.5 mmol/L (3.5-5.1); TOTAL PROTEIN, SERUM 5.1 g/dL (6.4-8.2)
[2024-09-07 08:10] LABS: URIC ACID 6.2 mg/dL (2.6-7.2)
[2024-09-07 08:32] LABS: ALBUMIN 1.4 g/dL (3.4-5.0)
[2024-09-07 08:49] LABS: EOSINOPHILS % (AUTO) 0.1 % (0.0-6.0)
[2024-09-07 09:06] LABS: BASOPHILS # (AUTO) 0.1 K/uL (0.0-0.2); BASOPHILS % (AUTO) 0.2 % (0.0-2.0); HEMATOCRIT 26 % (39-51); HEMOGLOBIN 7.8 g/dL (13.5-17.5); LYMPHOCYTES % (AUTO) 1.5 % (20.0-44.0); MEAN CORPUSCULAR HEMOGLOBIN 30 PG (26.0-33.0); MEAN CORPUSCULAR HGB CONC 30 g/dl (31.0-36.0); MEAN CORPUSCULAR VOLUME 99 fL (80-96); MONOCYTES # (AUTO) 1.1 K/uL (0.1-1.30); MONOCYTES % (AUTO) 1.8 % (2.0-12.0); NEUTROPHILS # (AUTO) 60.5 K/uL (1.8-8.9); NEUTROPHILS % (AUTO) 96.4 % (43.0-81.0); RED BLOOD CELL COUNT(AUTO) 2.61 MIL/uL (4.5-6.0); RED CELL DISTRIBUTION WIDTH 18.9 % (11.5-15.0)
[2024-09-07 09:10] LABS: PLATELET COUNT (AUTO) 9 K/uL (150-450); WHITE BLOOD COUNT (AUTO) 62.7 K/uL (4.3-11.0)
[2024-09-07 09:53] LABS: ABG BASE EXCESS -7.9 mmol/L (-2.0-3.0); ABG OXYGEN SATURATION 94.5 % (94.0-98.0); ABG PCO2 23.6 mmHg (35.0-48.0); ABG PH 7.428 (7.350-7.450); ABG PO2 76.7 mmHg (83.0-108.0); MetHb 0.3 % (0.0-1.5); O2Hb 93.3 % (94.0-97.0); SITE, ABG RIGHT RADIAL
[2024-09-07 10:06] LABS: LYMPHOCYTES % (MANUAL) 2 % (16-48); MONOCYTES % (MANUAL) 2 % (0-11.0); NEUTROPHILS % (MANUAL) 96 (42-76)
[2024-09-07 10:07] LABS: ANISOCYTOSIS 1+; PLATELET ESTIMATE DECREASED
[2024-09-07] MEDS: SUCRALFATE 1 G TABLET PO SCH (11:03)
[2024-09-07] MEDS: FUROSEMIDE 40 MG/4 ML VIAL IV ONE (11:03)
[2024-09-07 12:00] VITALS: BP 117/72; TEMP 99; O2SAT 96
[2024-09-07] MEDS: ACETAMINOPHEN 325 MG TABLET PO ONE (12:00)
[2024-09-07] MEDS: diphenhydrAMINE HCL 50 MG/ML VIAL IV ONE (12:00)
[2024-09-07] MEDS: CITRIC ACID/SODIUM CITRATE (BICITRA)15 ML UDC PO SCH (13:50)
[2024-09-07] MEDS: HYDROCODONE/APAP 10/325MG TABLET PO PRN (14:19)
[2024-09-07 16:00] VITALS: BP 115/70; TEMP 98.4; O2SAT 97
[2024-09-07 16:29] LABS: CALCIUM, SERUM 8.3 mg/dL (8.5-10.1); CREATININE 1.7 mg/dL (0.6-1.3); POTASSIUM 5.1 mmol/L (3.5-5.1)
[2024-09-07 20:00] VITALS: BP 121/80; TEMP 97.5; O2SAT 96
[2024-09-08] VITALS (12 sets, daily range): BP systolic 105–124; BP diastolic 57–80; TEMP 96.8–97.8; O2SAT 95–100
[2024-09-08 06:48] LABS: BASOPHILS # (AUTO) 0.2 K/uL (0.0-0.2); BASOPHILS % (AUTO) 0.3 % (0.0-2.0); EOSINOPHILS # (AUTO) 0.1 K/uL (0.0-0.7); EOSINOPHILS % (AUTO) 0.1 % (0.0-6.0); HEMATOCRIT 24 % (39-51); HEMOGLOBIN 7.1 g/dL (13.5-17.5); LYMPHOCYTES # (AUTO) 1.1 K/uL (0.8-4.8); LYMPHOCYTES % (AUTO) 1.6 % (20.0-44.0); MEAN CORPUSCULAR HEMOGLOBIN 29 PG (26.0-33.0); MEAN CORPUSCULAR HGB CONC 30 g/dl (31.0-36.0); MEAN CORPUSCULAR VOLUME 99 fL (80-96); MONOCYTES # (AUTO) 1.2 K/uL (0.1-1.30); MONOCYTES % (AUTO) 1.6 % (2.0-12.0); NEUTROPHILS # (AUTO) 69.6 K/uL (1.8-8.9); NEUTROPHILS % (AUTO) 96.4 % (43.0-81.0); RED BLOOD CELL COUNT(AUTO) 2.44 MIL/uL (4.5-6.0); RED CELL DISTRIBUTION WIDTH 18.8 % (11.5-15.0)
[2024-09-08 06:51] LABS: URIC ACID 6.2 mg/dL (2.6-7.2)
[2024-09-08 06:52] LABS: PLATELET COUNT (AUTO) 5 K/uL (150-450); WHITE BLOOD COUNT (AUTO) 72.2 K/uL (4.3-11.0)
[2024-09-08 06:58] LABS: INR 1.41 (0.91-1.10); PARTIAL THROMBOPLASTIN TIME 31.4 SEC (24.3-34.3); PROTHROMBIN TIME 14.6 SECS (9.2-11.1)
[2024-09-08 07:00] LABS: ALBUMIN 1.7 g/dL (3.4-5.0); BILIRUBIN,TOTAL 1.1 mg/dL (0.2-1.0); CALCIUM, SERUM 8.4 mg/dL (8.5-10.1); CREATININE 1.8 mg/dL (0.6-1.3); MAGNESIUM 2.4 mg/dL (1.8-2.4); PHOSPHORUS 4.4 mg/dL (2.5-4.9); TOTAL PROTEIN, SERUM 5.1 g/dL (6.4-8.2)
[2024-09-08 07:12] LABS: HEPATITIS B SURFACE AB (QUAL) Non Reactive (.)
[2024-09-08 07:18] LABS: D-DIMER 5.28 mg/L(FEU (0.17-0.50)
[2024-09-08 08:07] LABS: COMPLEMENT C3, SERUM 110 mg/dL (82-167); COMPLEMENT C4, SERUM 18 mg/dL (12-38)
[2024-09-08] MEDS ORDERED: IV NS 0.9% 1,000 ML IV PRN (08:47)
[2024-09-08] MEDS: ALLOPURINOL 100 MG TABLET PO SCH (09:01)
[2024-09-08 11:21] LABS: ANISOCYTOSIS 1+; LYMPHOCYTES % (MANUAL) 2 % (16-48); MONOCYTES % (MANUAL) 1 % (0-11.0); NEUTROPHILS % (MANUAL) 97 (42-76); PLATELET ESTIMATE DECREASED
[2024-09-08 12:07] LABS: *ANA ANTI-CENTROMERE B AB <0.2 AI (0.0-0.9); *ANA ANTI-DNA(DS) AB, QN <1 IU/mL (0-9); *ANA ANTI-JO-1 <0.2 AI (0.0-0.9); *ANA ANTICHROMATIN ANTIBODY <0.2 AI (0.0-0.9); *ANA RNP ANTIBODIES <0.2 AI (0.0-0.9); *ANA SJOGREN'S ANTI-SS-A <0.2 AI (0.0-0.9); *ANA SJOGREN'S ANTI-SS-B <0.2 AI (0.0-0.9); *ANAANTI-SCLERODERMA-70 AB <0.2 AI (0.0-0.9); *ANASMITH AB <0.2 AI (0.0-0.9)
[2024-09-08] MEDS: ACETAMINOPHEN 325 MG TABLET PO ONE (14:00)
[2024-09-08] MEDS: MORPHINE SULFATE INJ 2 MG/ML DISP.SYRIN IV PRN (17:32)
[2024-09-08] MEDS: diphenhydrAMINE HCL 50 MG/ML VIAL IV ONE (18:16)
[2024-09-08] MEDS ORDERED: diphenhydrAMINE HCL ELIX 25 MG/10 ML UDC PO PRN (18:30)
[2024-09-08] MEDS ORDERED: diphenhydrAMINE HCL 50 MG/ML VIAL IV PRN (18:30)
[2024-09-08] MEDS: ZOLPIDEM TARTRATE 5 MG TABLET PO PRN (21:49)
[2024-09-09] VITALS: BP 90/60; TEMP 97.2; O2SAT 95
[2024-09-09 00:15] LABS: ABG BASE EXCESS -20.9 mmol/L (-2.0-3.0); ABG OXYGEN SATURATION 98.6 % (94.0-98.0); ABG PCO2 15.2 mmHg (35.0-48.0); ABG PH 7.181 (7.350-7.450); ABG PO2 192.2 mmHg (83.0-108.0); ABG TOTAL HEMOGLOBIN 6.5 G/dL (13.5-17.5); COHb 0.1 % (0.5-1.5); MetHb 0.1 % (0.0-1.5); O2Hb 98.4 % (94.0-97.0); SITE, ABG RIGHT RADIAL
[2024-09-09] MEDS ORDERED: Calcium Gluconate 0.465 MEQ/ML VIAL IV ONE (00:28)
[2024-09-09] MEDS ORDERED: ATROPINE SULFATE 1 MG/10 ML DISP.SYRIN IV ONE (04:33)
== END 2024-09-09 04:34 | DRG 698 ==
LOC: ER 18:41 → TELE IN 22:51 → TELE1 08-30 08:17 → MEDSG1 09-01 13:00 → TELE1 09-07 00:58
PROVIDERS: ADMIT Student in an Organized Health Care Education/Training Program; ATTEND Nurse Practitioner Family
PROC: 30233N1 Transfusion of Nonautologous Red Blood Cells into Peripheral Vein, Percutaneous Approach (ICD-10-PCS; principal; 2024-09-02)
PROC: 30233R1 Transfusion of Nonautologous Platelets into Peripheral Vein, Percutaneous Approach (ICD-10-PCS; 2024-09-07)
PROC: 5A12012 Performance of Cardiac Output, Single, Manual (ICD-10-PCS; 2024-09-09)
PROC: 0BH17EZ Insertion of Endotracheal Airway into Trachea, Via Natural or Artificial Opening (ICD-10-PCS; 2024-09-09)
DX: T83.592A Infection and inflammatory reaction due to indwelling ureteral stent, initial encounter (principal); A41.89 Other specified sepsis; E43 Unspecified severe protein-calorie malnutrition; N17.0 Acute kidney failure with tubular necrosis; E88.3 Tumor lysis syndrome; R65.21 Severe sepsis with septic shock; C64.9 Malignant neoplasm of unspecified kidney, except renal pelvis; C78.00 Secondary malignant neoplasm of unspecified lung; C78.7 Secondary malignant neoplasm of liver and intrahepatic bile duct; C79.51 Secondary malignant neoplasm of bone; E87.1 Hypo-osmolality and hyponatremia; D61.818 Other pancytopenia; E87.20 Acidosis, unspecified; J84.9 Interstitial pulmonary disease, unspecified; N39.0 Urinary tract infection, site not specified; Z85.528 Personal history of other malignant neoplasm of kidney; Y84.6 Urinary catheterization as the cause of abnormal reaction of the patient, or of later complication, without mention of misadventure at the time of the procedure; Y92.009 Unspecified place in unspecified non-institutional (private) residence as the place of occurrence of the external cause; G43.909 Migraine, unspecified, not intractable, without status migrainosus; E86.0 Dehydration; E87.5 Hyperkalemia; D50.9 Iron deficiency anemia, unspecified; D53.9 Nutritional anemia, unspecified; D75.839 Thrombocytosis, unspecified; E53.8 Deficiency of other specified B group vitamins; E83.52 Hypercalcemia; E88.09 Other disorders of plasma-protein metabolism, not elsewhere classified; E87.70 Fluid overload, unspecified; G93.9 Disorder of brain, unspecified; I12.9 Hypertensive chronic kidney disease with stage 1 through stage 4 chronic kidney disease, or unspecified chronic kidney disease; I46.9 Cardiac arrest, cause unspecified; K59.00 Constipation, unspecified; N18.9 Chronic kidney disease, unspecified; Z66 Do not resuscitate; Z92.21 Personal history of antineoplastic chemotherapy; D69.6 Thrombocytopenia, unspecified; R19.7 Diarrhea, unspecified
CPT/HCPCS: 36415; 36600; 71045-TC; 71250-TC; 74018; 76770-TC; 80048-TC; 80053-TC; 80076-TC; 80202-TC; 81001; 82150-TC; 82232; 82550-TC; 82570-TC; 82607-TC; 82728-TC; 82784; 82803-TC; 82962-TC; 83540-TC; 83605-TC; 83615-TC; 83690-TC; 83735-TC; 83935-TC; 83970; 84100-TC; 84155; 84165; 84300-TC; 84443-TC; 84484-TC; 84550-TC; 85025-TC; 85027-TC; 85385-TC; 85396; 85652-TC; 85730-TC; 86140-TC; 86225; 86235; 86334; 86431-TC; 86706; 86803; 86850-TC; 87040-TC; 87086-TC; 87340; 92950-TC; 97110-TC; 97112-TC; 97530-TC; 97535-TC; A4223; A6213; G0378; J0171; J0282; J0461; J0612; J1200; J1938; J2185; J2270; J2405; J2430; J2543; J2916; J2919; J3370; J3371; J3490; J7030; J7040; J7050; J7060; J7120; P9016; P9034